=== PATIENT | female | born 1935 | race Caucasian/White ===

== ENCOUNTER 2020-04-07 15:56 | Day surgery (SDC) | payer MEDICARE, MEDICAID ==
[~2020-04-07] VITALS: Ht 152.4 cm; Wt 50.6 kg
[~2020-04-07 15:56] MED LIST: BUPIVACAINE/PF 0.25% ONE; HEPARIN 1,000 UNITS/ML, 10ML ONE; LIDOCAINE/PF 1%, 30ML ONE; PAPAVERINE 30 MG/ML, 2ML ONE; PROTAMINE SULFATE 10 MG/ML, 5ML ONE; THROMBIN 5,000 UNIT VIAL TP ONE
[2020-04-07 16:29] VITALS: BP 170/65
[2020-04-07] MEDS ORDERED: PLEASE ENTER HEIGHT AND WEIGHT MC SCH (16:30)
[2020-04-07] MEDS ORDERED: PLEASE ENTER ALLERGIES MC SCH (16:30)
[2020-04-07] MEDS ORDERED: SODIUM CHLORIDE 0.9% 1,000 ML IV SCH (16:30)
[2020-04-07] MEDS ORDERED: CHLORHEXIDINE 15 ML UDC MM ONE (16:30)
[2020-04-07 16:38] LABS: BASOPHILS % (AUTO) 1 % (0-1); EOSINOPHILS % (AUTO) 4 % (1-7); LYMPHOCYTES % (AUTO) 13 % (22-44); MEAN CORPUSCULAR HEMOGLOBIN 30.7 pg (27.0-34.8); MEAN CORPUSCULAR HGB CONC 32.7 g/dL (32.4-35.8); MEAN PLATELET VOLUME 8.7 fL (7.4-10.4); MONOCYTES % (AUTO) 18 % (2-9); NEUTROPHILS % (AUTO) 64 % (42-75); PLATELET COUNT 173 x10^3/uL (130-400); RED BLOOD COUNT 4.18 x10^6/uL (3.82-5.3); RED CELL DISTRIBUTION WIDTH 18.2 % (9.6-15.2)
[2020-04-07 16:41] LABS: MD NO
[2020-04-07 16:48] LABS: ANION GAP 4 mmol/L (5-15); CALCIUM 8.4 mg/dL (8.5-10.1); CHLORIDE 101 mmol/L (98-107); CREATININE 2.35 mg/dL (0.55-1.02)
[2020-04-07] MEDS ORDERED: BUDE0.5A INH (17:00)
[2020-04-07] MEDS ORDERED: POLY17PO29 PO (17:00)
[2020-04-07] MEDS ORDERED: SIMV20TA19 PO (17:00)
[2020-04-07] MEDS ORDERED: FURO40TA6 PO (17:00)
[2020-04-07] MEDS ORDERED: FERR325T18 PO (17:00)
[2020-04-07] MEDS ORDERED: LACT1CAP44 PO (17:00)
[2020-04-07] MEDS ORDERED: CHOL10003 PO (17:00)
[2020-04-07] MEDS ORDERED: AMLO-211 PO (17:00)
[2020-04-07] MEDS ORDERED: OMEP-110 PO (17:00)
[2020-04-07] MEDS ORDERED: SEVE800T7 PO (17:00)
[2020-04-07] MEDS ORDERED: DIVA125T31 PO (17:00)
[2020-04-07] MEDS ORDERED: LISI-167 PO (17:00)
[2020-04-07] MEDS ORDERED: METO25TA2 PO (17:00)
[2020-04-07] MEDS ORDERED: DIPHENHYDRAMINE 50 MG/ML, 1ML IVPush PRN (17:30)
[2020-04-07] MEDS ORDERED: OXYcodone 5 MG/5 ML ORAL.SOL UDC PO PRN (17:30)
[2020-04-07] MEDS ORDERED: hydrALAzine 20 MG/ML, 1ML IV PRN (17:30)
[2020-04-07] MEDS ORDERED: LABETALOL 5MG/ML, 20ML IV PRN (17:30)
[2020-04-07] MEDS ORDERED: HYDROmorphone 1 MG/ML, 1ML INJ IVPush PRN (17:30)
[2020-04-07] MEDS ORDERED: HALOPERIDOL 5 MG/ML IV PRN (17:30)
[2020-04-07] MEDS ORDERED: FENTANYL PF 100 MCG/2ML IV PRN (17:30)
[2020-04-07] MEDS ORDERED: PROMETHAZINE 25 MG/ML, 1ML IVPush PRN (17:30)
[2020-04-07] MEDS ORDERED: FENTANYL PF 100 MCG/2ML ONE ×2 (17:51→20:10)
[2020-04-07] MEDS ORDERED: BUPIVACAINE/PF 0.25% INFIL ONE (18:10)
[2020-04-07] MEDS ORDERED: HEPARIN 1,000 UNITS/ML, 1ML IV ONE (18:10)
[2020-04-07] MEDS ORDERED: PROPOFOL 10 MG/ML, 20ML ONE (19:13)
[2020-04-07] MEDS ORDERED: ONDANSETRON 2MG/ML, 2ML ONE (19:13)
[2020-04-07] MEDS ORDERED: DEXAMETHASONE 4 MG/ML, 1ML ONE (19:13)
[2020-04-07] MEDS ORDERED: CEFAZOLIN 1,000 MG ONE (19:13)
[2020-04-07] MEDS ORDERED: OXYcodone 5 MG/5 ML ORAL.SOL UDC ONE (20:10)
[2020-04-07] MEDS ORDERED: hydrALAzine 20 MG/ML, 1ML ONE (20:33)
== END 2020-04-07 22:26 | disposition home or self-care (01) ==
LOC: OR 15:56
PROVIDERS: ATTEND Surgery
DX: T82.868A Thrombosis due to vascular prosthetic devices, implants and grafts, initial encounter (principal); Y83.8 Other surgical procedures as the cause of abnormal reaction of the patient, or of later complication, without mention of misadventure at the time of the procedure; I13.2 Hypertensive heart and chronic kidney disease with heart failure and with stage 5 chronic kidney disease, or end stage renal disease; E11.22 Type 2 diabetes mellitus with diabetic chronic kidney disease; N18.6 End stage renal disease; I50.9 Heart failure, unspecified; J44.9 Chronic obstructive pulmonary disease, unspecified; K21.9 Gastro-esophageal reflux disease without esophagitis; Z86.73 Personal history of transient ischemic attack (TIA), and cerebral infarction without residual deficits; Z98.890 Other specified postprocedural states; Z79.899 Other long term (current) drug therapy; Z88.0 Allergy status to penicillin; Z20.828 Contact with and (suspected) exposure to other viral communicable diseases
CPT/HCPCS: 36415; 36830; 80048; 82962; 85025; 87635; 93005; C1768; J0360; J0690; J1100; J1644; J2405; J2704; J2720; J3010; J7030; J2440